=== PATIENT | female | born 2000 | race African-American/Black ===

== ENCOUNTER 2022-07-03 08:39 | Outpatient (CLI) | payer BC ==
[2022-07-03 09:22] LABS: BHCG - Serum Negative (NEGATIVE); Pregs Control Background? CLEAR/WHITE (CLR/WHITE); Pregs Control Bar Appear? YES (CONTROL BAR)
== END 2022-07-03 08:40 | disposition home or self-care (01) ==
LOC: CSHLAB 08:39
PROVIDERS: ATTEND Surgery
DX: Z01.812 Encounter for preprocedural laboratory examination (principal); K80.20 Calculus of gallbladder without cholecystitis without obstruction
CPT/HCPCS: 84703

== ENCOUNTER 2022-07-04 10:12 | Day surgery (SDC) | payer BC ==
[2022-07-02 15:23] VITALS: BMI 25.9
[2022-07-04] MEDS ORDERED: Bupivacaine HCl 0.5%/Epinephrine 1:200,000/PF 30 ml Vial ONE (10:31)
[2022-07-04] MEDS ORDERED: CEFAZOLIN 2 GM VIAL ONE (10:35)
[2022-07-04] MEDS ORDERED: Ondansetron PF 4 MG/2 ML Vial ONE ×2 (10:37→12:38)
[2022-07-04] MEDS ORDERED: Ketorolac Tromethamine 30 MG/ML VIAL ONE ×2 (10:37→11:14)
[2022-07-04] MEDS ORDERED: Midazolam HCl 2 mg/2 ml Vial ONE ×2 (10:37→10:43)
[2022-07-04] MEDS ORDERED: Dexamethasone 4 mg/ml Vial ONE (10:37)
[2022-07-04] MEDS ORDERED: PROPOFOL 20 ML ONE (10:37)
[2022-07-04] MEDS ORDERED: Rocuronium Bromide 10 MG/ML (10ML VIAL) ONE (10:37)
[2022-07-04] MEDS ORDERED: Esmolol 100 MG/10 ML VIAL ONE (10:37)
[2022-07-04] MEDS ORDERED: Fentanyl 100 MCG/2 ML VIAL ONE (10:37)
[2022-07-04] MEDS ORDERED: Lidocaine 1% PF 5 ML VIAL ONE (10:38)
[2022-07-04] MEDS ORDERED: Famotidine/PF 20 mg/2ml Vial ONE (10:43)
[2022-07-04] MEDS ORDERED: SUGAMMADEX SODIUM 200 MG/2 ML VIAL ONE (10:54)
[2022-07-04] MEDS ORDERED: HYDROcodone/Acetaminophen 5/325 mg Tablet PO PRN ×3 (12:02→12:36)
[2022-07-04] MEDS ORDERED: HYDROcodone/Acetaminophen 5/325 mg Tablet ONE (12:35)
[2022-07-04] MEDS ORDERED: Morphine 2 MG/ML VIAL SLOW IVP PRN (12:37)
[2022-07-04] MEDS ORDERED: Promethazine HCl 25 MG/ML VIAL IM PRN (12:39)
[2022-07-04] MEDS ORDERED: Ondansetron PF 4 MG/2 ML Vial IVP PRN (12:39)
== END 2022-07-04 13:35 | disposition home or self-care (01) ==
LOC: CSHSDC 10:12
PROVIDERS: ATTEND Surgery
PROC: 0FT44ZZ Resection of Gallbladder, Percutaneous Endoscopic Approach (ICD-10-PCS; principal; 2022-07-04)
DX: K80.10 Calculus of gallbladder with chronic cholecystitis without obstruction (principal); K85.10 Biliary acute pancreatitis without necrosis or infection; Z79.899 Other long term (current) drug therapy
CPT/HCPCS: 88304; C1776; J1100; J1885; J2250; J2405; J2704; J3010; S0028